=== PATIENT | female | born 1990 | race Caucasian/White ===

== ENCOUNTER 2017-03-12 22:38 | Emergency (ER) | payer MEDICAID ==
[~2017-03-12] VITALS: Ht 152.4 cm; Wt 70.3 kg
[~2017-03-12 22:38] MED LIST: ESCI10TA PO
--- NOTE | 2017-03-12 22:54 | NUR ---
Patient to ER bed 07 to gown for evaluation. Side rails up. Report given to Maycol BENSON
--- NOTE | 2017-03-12 22:54 | NUR ---
Pavan torres in ED - 03/12/17 at 2257 by [email or web address] Placed in room 06 . Placed on compliance monitor, blood pressure machine and pulse oximeter. To gown for exam. Side rails up.
[2017-03-12 22:55] VITALS: BP_SYST 115
--- NOTE | 2017-03-12 22:55 | NUR ---
Dr garcia at bedside to evaluate patient.
--- NOTE | 2017-03-12 23:00 | NUR ---
Patient to ER via triage with c/o SOB and CP(off and on)x 2 weeks. Patient reports finishing second round of antibiotics recently. Patient is awake, alert and oriented in no acute distress, with slow, even respirations, skins warm and dry to touch. EKG done and shows sinus rhythm without ectopy. Patient provided urine sample which was obtained and sent to lab. Patient has been seen and evaluated by Dr Helton. Will continue to observe and assess.
--- NOTE | 2017-03-12 23:35 | NUR ---
Patient to X-ray department for films in no acute distress. Patient able to ambulate without difficulty with slow, steady gait.
[2017-03-12 23:54] VITALS: BP_SYST 118
--- NOTE | 2017-03-12 23:54 | NUR ---
Patient given written and verbal discharge instructions and verbalizes understanding. ER MD discussed with patient the results and treatment provided. Patient in stable condition. ID arm band removed. Rx of ibuprofen given. Patient educated on pain management and to follow up with PMD. Pain Scale 0/10. Opportunity for questions provided and answered.
== END 2017-03-12 23:54 | disposition home or self-care (01) ==
LOC: SED 22:38
DX: R09.1 Pleurisy (principal); G43.909 Migraine, unspecified, not intractable, without status migrainosus; Z88.8 Allergy status to other drugs, medicaments and biological substances
CPT/HCPCS: 71045; 81025; 93005; 99284

== ENCOUNTER 2017-09-10 18:15 | Emergency (ER) | payer MEDICAID ==
[~2017-09-10] VITALS: Ht 157.5 cm; Wt 68.0 kg
[2017-09-10 18:22] VITALS: BP_SYST 99
[2017-09-10] MEDS ORDERED: PROCHLORPERAZINE EDISYLATE 10 MG/2 ML VIAL IVP ONE (19:00)
[2017-09-10] MEDS ORDERED: DIPHENHYDRAMINE INJ 50 MG/ML VIAL IVP ONE (19:00)
[2017-09-10] MEDS ORDERED: NACL 0.9% 1,000 ML IV ONE (19:00)
[2017-09-10 20:44] LABS: BILIRUBIN,URINE NEGATIVE (NEGATIVE); CLARITY/URINE CLEAR (CLEAR); COLOR,URINE YELLOW (YELLOW); GLUCOSE,URINE NEGATIVE (NEGATIVE); KETONES,URINE 2+ (NEGATIVE); LEUKOCYTE ESTERASE ,URINE NEGATIVE (NEGATIVE); NITRITE, URINE NEGATIVE (NEGATIVE); PROTEIN URINE NEGATIVE (NEGATIVE); UROBILINOGEN,URINE 0.2 (0.2-1.0)
[2017-09-10 20:55] LABS: BLOOD, URINE TRACE (NEGATIVE)
[2017-09-10 20:59] VITALS: BP_SYST 118
[2017-09-10 21:02] LABS: BACTERIA,URINE FEW /HPF (None Seen); RBC,URINE NONE SEEN /HPF (0-3); WBC,URINE 0-3 /HPF (0-3)
[2017-09-10 21:03] LABS: MUCUS,URINE None Seen /LPF (None Seen)
== END 2017-09-10 20:59 | disposition home or self-care (01) ==
LOC: SED 18:15
DX: G43.909 Migraine, unspecified, not intractable, without status migrainosus (principal); Z90.49 Acquired absence of other specified parts of digestive tract; Z88.8 Allergy status to other drugs, medicaments and biological substances
CPT/HCPCS: 81000; 96361; 96374; 96375; 99284; J0780; J1200; J7030

== ENCOUNTER 2018-07-04 13:52 | Emergency (ER) | payer SELFPAY ==
[~2018-07-04] VITALS: Ht 152.4 cm; Wt 61.2 kg
[2018-07-04 13:58] VITALS: BP_SYST 114
[2018-07-04] MEDS ORDERED: KETOROLAC TROMETHAMINE 30 MG VIAL IM ONE (14:30)
== END 2018-07-04 15:15 | disposition home or self-care (01) ==
LOC: SED 13:52
DX: S22.42XA Multiple fractures of ribs, left side, initial encounter for closed fracture (principal); G43.909 Migraine, unspecified, not intractable, without status migrainosus; Z88.8 Allergy status to other drugs, medicaments and biological substances; Z79.899 Other long term (current) drug therapy; W17.89XA Other fall from one level to another, initial encounter; Z91.81 History of falling; Y93.89 Activity, other specified; Y92.89 Other specified places as the place of occurrence of the external cause; Y99.8 Other external cause status
CPT/HCPCS: 71045; 71100; 81025; 96372; 99284; J1885

== ENCOUNTER 2020-06-20 09:54 | Emergency (ER) | payer BC ==
[~2020-06-20] VITALS: Ht 152.4 cm; Wt 59.0 kg
--- NOTE | 2020-06-20 10:00 | NUR ---
Patient to ER bed 7 to gown for evaluation. Side rails up.
[2020-06-20 10:02] VITALS: BP_SYST 105
--- NOTE | 2020-06-20 10:02 | NUR ---
ekg done and given to
--- NOTE | 2020-06-20 10:03 | NUR ---
pt arrives from home with 5/10 right sided CP, radiates to the right side of the back. Pt also reports RUQ 5/10. Pt denies any fever or CP.
--- NOTE | 2020-06-20 10:08 | NUR ---
ER at bedside examining patient.
--- NOTE | 2020-06-20 10:24 | NUR ---
ua collected and sent to the lab
[2020-06-20 10:32] LABS: BILIRUBIN,URINE NEGATIVE (NEGATIVE); BLOOD, URINE 3+ (NEGATIVE); CLARITY/URINE CLOUDY (CLEAR); COLOR,URINE YELLOW (YELLOW); GLUCOSE,URINE NEGATIVE (NEGATIVE); KETONES,URINE 1+ (NEGATIVE); LEUKOCYTE ESTERASE ,URINE 3+ (NEGATIVE); NITRITE, URINE NEGATIVE (NEGATIVE); PH,URINE 6.5 (5.0-8.0); PROTEIN URINE TRACE (NEGATIVE); UROBILINOGEN,URINE 0.2 (0.2-1.0)
[2020-06-20] MEDS ORDERED: CIPR500T5 PO (10:45)
[2020-06-20] MEDS ORDERED: IBUP-1969 PO (10:45)
[2020-06-20 10:52] VITALS: BP_SYST 105
--- NOTE | 2020-06-20 10:53 | NUR ---
Patient given written and verbal discharge instructions and verbalizes understanding. ER MD discussed with patient the results and treatment provided. Patient in stable condition. ID arm band removed. Rx of Cipro and Motrin given. Patient educated on pain management and to follow up with PMD. Pain Scale 3/10. Opportunity for questions provided and answered. Medication side effect fact sheet provided.
[2020-06-20 10:54] LABS: RBC,URINE 20-50 /HPF (0-3); WBC,URINE 20-50 /HPF (0-3)
[2020-06-20 10:55] LABS: BACTERIA,URINE FEW /HPF (None Seen); URINE AMORPHOUS URATE 1+ /HPF (None Seen)
== END 2020-06-20 10:53 | disposition home or self-care (01) ==
LOC: SED 09:54
DX: R07.89 Other chest pain (principal); N39.0 Urinary tract infection, site not specified; G43.909 Migraine, unspecified, not intractable, without status migrainosus; Z90.49 Acquired absence of other specified parts of digestive tract
CPT/HCPCS: 81000; 81025; 87086; 93005; 99284

== ENCOUNTER 2021-11-21 10:27 | Emergency (ER) | payer BC ==
[~2021-11-21] VITALS: Ht 152.4 cm; Wt 53.1 kg
[~2021-11-21 10:27] MED LIST changes: +CIPR500T5 PO; +IBUP-1969 PO
[2021-11-21 10:36] VITALS: BP_SYST 129
--- NOTE | 2021-11-21 11:45 | NUR ---
PT PRESENTED TO ER BIB SELF. AWAKE AND ALERT, AOX4. C/O SOB, PAIN. PT CAME FROM HOME WITH MULTIPLE COMPLAINTS OF PAIN, RIB, MIGRAINE, SOB. PERRLA. PT STATES NAUSEA, BUT NO VOMITING AT HOME.
--- NOTE | 2021-11-21 11:50 | NUR ---
MD DR MEYER AT BEDSIDE
[2021-11-21] MEDS ORDERED: HYDROcodone/ACETAMIN 10-325 MG TAB PO ONE (12:00)
[2021-11-21] MEDS ORDERED: KETOROLAC TROMETHAMINE 60 MG/2 ML VIAL IM ONE (12:00)
--- NOTE | 2021-11-21 12:06 | NUR ---
MEDICATED BY LEO JOYNER
[2021-11-21] MEDS ORDERED: IBUP-1969 PO (12:53)
[2021-11-21] MEDS ORDERED: HYDR-3917 PO (12:53)
[2021-11-21 13:31] VITALS: BP_SYST 133
--- NOTE | 2021-11-21 13:31 | NUR ---
Patient given written and verbal discharge instructions and verbalizes understanding. ER MD discussed with patient the results and treatment provided. Patient in stable condition. ID arm band removed. Rx of NORCO, IBUPROFEN given. Patient educated on pain management and to follow up with PMD. Pain Scale . Opportunity for questions provided and answered. Medication side effect fact sheet provided.
--- NOTE | 2021-11-21 14:32 | NUR ---
Note undone in EDM - 11/21/21 at 1434 by GREGORYTE Patient given written and verbal discharge instructions and verbalizes understanding. ER MD DR MEYER discussed with patient the results and treatment provided. Patient in stable condition. ID arm band removed. Rx of NORCO AND ADVIL given. Patient educated on pain management and to follow up with PMD. Pain Scale 4/10. Opportunity for questions provided and answered. Medication side effect fact sheet provided.
== END 2021-11-21 14:31 | disposition home or self-care (01) ==
LOC: SED 10:27
DX: R51.9 Headache, unspecified (principal); Z79.899 Other long term (current) drug therapy; Z88.8 Allergy status to other drugs, medicaments and biological substances
CPT/HCPCS: 99283; 96372; J1885

== ENCOUNTER 2023-01-04 12:51 | Emergency (ER) | payer BC, OTHER ==
[~2023-01-04] VITALS: Ht 154.9 cm; Wt 46.7 kg
[~2023-01-04 12:51] MED LIST changes: +HYDR-3917 PO
[2023-01-04 13:14] VITALS: BP_SYST 99; PULSE 91; RESP 16; TEMP 98.2; O2SAT 98
[2023-01-04] MEDS ORDERED: KETOROLAC TROMETHAMINE 60 MG/2 ML VIAL IM ONE (13:30)
[2023-01-04] MEDS ORDERED: PROCHLORPERAZINE EDISYLATE 10 MG/2 ML VIAL IM ONE (13:30)
[2023-01-04 14:14] VITALS: BP_SYST 99; PULSE 91; RESP 16; TEMP 98.2; O2SAT 98
== END 2023-01-04 14:13 | disposition home or self-care (01) ==
LOC: SED 12:51
DX: G43.909 Migraine, unspecified, not intractable, without status migrainosus (principal); M54.2 Cervicalgia; R11.10 Vomiting, unspecified; Z88.7 Allergy status to serum and vaccine; Z79.899 Other long term (current) drug therapy
CPT/HCPCS: 99284; 96372; J1885; J0780

== ENCOUNTER 2023-01-14 11:18 | Emergency (ER) | payer OTHER ==
[~2023-01-14] VITALS: Ht 152.4 cm; Wt 47.2 kg
[2023-01-14 11:22] VITALS: BP_SYST 122; PULSE 102; RESP 18; TEMP 98.3; O2SAT 97
[2023-01-14] MEDS ORDERED: DIPHENHYDRAMINE INJ 50 MG/ML VIAL IVP ONE (11:45)
[2023-01-14] MEDS ORDERED: METOCLOPRAMIDE HCL 10 MG/2 ML VIAL IVP ONE (11:45)
[2023-01-14 12:58] LABS: BASOPHILS # (AUTO) 0.1 K/uL (0.0-0.2); BASOPHILS % (AUTO) 1.5 % (0.0-2.0); EOSINOPHILS % (AUTO) 0.4 % (0.0-4.0); HEMATOCRIT 41.5 % (36-48); HEMOGLOBIN 13.5 g/dL (12.0-16.0); LYMPHOCYTES # (AUTO) 1.4 K/uL (1.0-5.5); LYMPHOCYTES % (AUTO) 21.7 % (20.5-51.5); MEAN CORPUSCULAR HEMOGLOBIN 28 pg (27-31); MEAN CORPUSCULAR HGB CONC 32 % (32-36); MEAN CORPUSCULAR VOLUME 86 fL (79.0-98.0); MONOCYTES # (AUTO) 0.3 K/uL (0.0-1.0); NEUTROPHILS # (AUTO) 4.7 K/uL (1.8-7.7); NEUTROPHILS % (AUTO) 72.4 % (40.0-70.0); PLATELET COUNT (AUTO) 274 K/uL (130-430); RED BLOOD CELL COUNT(AUTO) 4.82 MIL/uL (4.2-6.2); WHITE BLOOD COUNT (AUTO) 6.5 K/uL (4.8-10.8)
[2023-01-14 13:00] LABS: ERYTHROCYTE SEDIMENTATION RATE 1 MM/HR (0-20)
[2023-01-14 13:01] LABS: CALCIUM 9.9 mg/dL (8.4-11.0); CREATININE 0.74 mg/dL (0.55-1.30); POTASSIUM 3.6 mmol/L (3.5-5.1)
[2023-01-14 13:16] LABS: ALBUMIN 4.1 g/dL (3.4-4.8); TOTAL BILIRUBIN 0.5 mg/dL (0.0-1.0); TOTAL PROTEIN, SERUM 7.2 g/dL (6.4-8.3)
== END 2023-01-14 14:08 | disposition home or self-care (01) ==
LOC: SED 11:18
DX: G43.909 Migraine, unspecified, not intractable, without status migrainosus (principal); R11.2 Nausea with vomiting, unspecified; Z88.7 Allergy status to serum and vaccine; Z79.899 Other long term (current) drug therapy
CPT/HCPCS: 99285; 96374; 70450; 96375; 80053; 85025; 85651; 36415; 76376; 82397; J1200; J2765